=== PATIENT | female | born 1960 | race Caucasian/White ===

== ENCOUNTER 2016-05-04 07:15 | Day surgery (SDC) | payer BC ==
[~2016-05-04] VITALS: Ht 157.5 cm; Wt 84.3 kg
[2016-05-04] MEDS ORDERED: LIDOCAINE 2% (SDV) 5 ML INJ ONE (08:06)
[2016-05-04] MEDS ORDERED: MIDAZOLAM 1 MG/ML 2 ML INJ ONE (08:06)
[2016-05-04] MEDS ORDERED: PROPOFOL 20 ML ONE ×2 (08:06→09:01)
[2016-05-04 08:08] VITALS: Ht 157.5 cm; Wt 84.3 kg
[2016-05-04] MEDS ORDERED: TUMERIC (09:14)
[2016-05-04] MEDS ORDERED: AMOX250C PO (09:14)
[2016-05-04 09:30] VITALS: BP 132/70; PULSE 75; RESP 19
--- NOTE | 2016-05-04 11:58 | GILP ---
DATE OF PROCEDURE: INDICATION: A 56-year-old female undergoing this procedure for abdominal pain, nausea, vomiting, an d colonoscopy for colon cancer screening. The risks of the procedure, related and unrelated complic ations, anesthetic risks, alternatives discussed, informed consent was obtained. DESCRIPTION OF PROCEDURE: The patient was brought to the GI lab, sedated by Dr. Brothers. After optima l sedation, scope was passed with much ease into esophagus which was grossly within normal limits. Z-line was at 35 cm. Stomach mucosa revealed multiple superficial antral ulcers. Duodenal mucosa r evealed duodenitis. Second part was within normal limits, 3 to 4 random biopsies obtained from the stomach to rule out H pylori infection. Retroversion done, no growth was seen. Scope was straighte rayna out and removed with good patient tolerance. IMPRESSION: 1. Multiple gastric ulcers in the antrum. 2. Duodenitis. 3. Normal esophagus. 4. Z-line at 35 cm. PLAN: Start the patient on PPI. Pending H pylori urease test. COLONOSCOPY REPORT: The patient was turned around, scope was passed with much ease into rectum, adv anced through sigmoid, descending, transverse colon all the way into the cecum. Appendiceal orifice and IC valve identified. Peeped into terminal ileum which was normal. The rest of the colon appea red normal. Clarity was good. Cleanliness was good. Colon was tortuous. Hemorrhoids identified. IMPRESSION: 1. Normal findings all the way into the cecum. 2. Clarity and cleanliness was good. 3. Colon was tortuous. 4. Small hemorrhoids identified. PLAN: To stay on a high fiber diet. Dictated By: LARISSA SCHERER/NEPTALI Conf#: [id number] DID#: [id number] CC: Meredith Parker;*EndCC*
== END 2016-05-04 11:15 | disposition home or self-care (01) ==
LOC: GIL 07:15
PROVIDERS: ATTEND Internal Medicine Gastroenterology
DX: Z12.11 Encounter for screening for malignant neoplasm of colon (principal); K25.9 Gastric ulcer, unspecified as acute or chronic, without hemorrhage or perforation; K29.80 Duodenitis without bleeding; K64.9 Unspecified hemorrhoids
CPT/HCPCS: 43239; 45378; 88305; 88312; J2250; Z7610

== ENCOUNTER 2017-10-23 17:53 | Emergency (ER) | END 2017-10-23 19:24 | disposition home or self-care (01) ==

== ENCOUNTER 2017-11-15 20:08 | Emergency (ER) | END 2017-11-15 21:41 | disposition home or self-care (01) ==

== ENCOUNTER 2018-01-18 13:59 | Emergency (ER) | END 2018-01-18 16:12 | disposition home or self-care (01) ==

== ENCOUNTER 2018-03-19 16:07 | Emergency (ER) | payer BC ==
[~2018-03-19] VITALS: Ht 167.6 cm; Wt 88.0 kg
[~2018-03-19 16:07] MED LIST: AMOX250C PO; CEPH-443 PO; HYDR-843 PO; NPH10OT RIGHT EAR; TUMERIC
[2018-03-19 16:12] VITALS: Ht 167.6 cm; Wt 88.0 kg
[2018-03-19] MEDS ORDERED: KETOROLAC 30 MG INJ IV STA (16:33)
[2018-03-19] MEDS ORDERED: ASPI-903 PO (17:00)
[2018-03-19] MEDS ORDERED: IBUP-1542 PO (18:29)
--- NOTE | 2018-03-19 18:31 | ERD ---
ER Documentation Chief Complaint Chief Complaint Complains of Chest pain HPI Patient is a 58-year-old female with sleep apnea who presents with chest pain. The patient has had constant pain in the chest and feels like her left arm is cramping. She has constant fatigue. She describes the pain as "needle pain". She felt shortness of breath and anxious. She is speaking in full sentences however. She said that the symptoms started 1 month ago. Upon review of old medical records this is the patient's fourth visit to the ER since October 2017. She does not know the name of her primary doctor. ROS All systems reviewed and are negative except as per history of present illness. Medications Home Meds Active Scripts Ibuprofen* (Motrin*) 600 Mg Tab, 600 MG PO Q6H PRN for PAIN AND OR ELEVATED TEMP, #30 TAB Prov:GODFREY LANDERS MD 03/19/18 Reported Medications Aspirin* (Aspirin* Chew) 81 Mg Tab.chew, 81 MG PO DAILY, TAB.CHEW 03/19/18 Discontinued Reported Medications [Tumeric] No Conflict Check 05/04/16 Amoxicillin* (Amoxicillin*) 250 Mg Cap, 250 MG PO Q8, #30 CAP 05/04/16 Discontinued Scripts Hydroxyzine Hcl* (Hydroxyzine Hcl*) 25 Mg Tablet, 25 MG PO Q8H PRN for ITCHING, #30 TAB Prov:ROOSEVELT GARCIA NP 11/15/17 Cephalexin* (Keflex*) 500 Mg Capsule, 500 MG PO QID for 10 Days, CAP Prov:ROOSEVELT GARCIA NP 11/15/17 Neomycin/Polymyxin/Hydrocort* (Cortisporin* Otic) 10 Ml Susp, 4 DROP RIGHT EAR QID for 7 Days, EA Prov:IVANA CRABTREE MD 10/23/17 Allergies Allergies: Coded Allergies: shellfish derived (Verified Allergy, Severe, swelling/itching, 11/15/17) latex (Verified Allergy, Intermediate, rash, 11/15/17) Uncoded Allergies: PLASTIC TAPE (Allergy, Intermediate, rash, 11/15/17) SULFA (Allergy, Intermediate, rash, 11/15/17) IV CONTRAST (Allergy, Unknown, swelling/itching, 11/15/17) OPIATES (Allergy, Unknown, swelling, 11/15/17) PMhx/Soc History of Surgery: Yes (partial hysterectomy) Anesthesia Reaction: No Hx Neurological Disorder: No Hx Respiratory Disorders: Yes (sleep apnea) Hx Cardiac Disorders: No Hx Psychiatric Problems: No Hx Miscellaneous Medical Probl: No Hx Alcohol Use: No Hx Substance Use: No Hx Tobacco Use: Yes (quit 13 years ago) FmHx Family History: No coronary disease Physical Exam Vitals Vital Signs Date Temp Pulse Resp B/P (MAP) Pulse Ox O2 O2 Flow FiO2 Time Delivery Rate 03/19/18 88 18 125/62 96 Room Air 18:34 (83) 03/19/18 98.1 86 16 125/67 97 Room Air 18:30 (86) 03/19/18 98.7 103 20 150/69 97 16:12 (96) Physical Exam Const: No acute distress Head: Atraumatic Eyes: Normal Conjunctiva ENT: Normal External Ears, Nose and Mouth. Neck: Full range of motion. No meningismus. Resp: Clear to auscultation bilaterally Cardio: Regular rate and rhythm, no murmurs Abd: Soft, non tender, non distended. Normal bowel sounds Skin: No petechiae or rashes Back: No midline or flank tenderness Ext: No cyanosis, or edema Neur: Awake and alert Psych: Normal Mood and Affect Result Diagram: 03/19/18 1700 03/19/18 1700 Results 24 hrs Laboratory Tests Test 03/19/18 17:00 White Blood Count 10.9 10^3/ul Red Blood Count 4.27 10^6/ul Hemoglobin 13.3 g/dl Hematocrit 38.2 % Mean Corpuscular Volume 89.5 fl Mean Corpuscular Hemoglobin 31.1 pg Mean Corpuscular Hemoglobin Concent 34.8 g/dl Red Cell Distribution Width 12.1 % Platelet Count 414 10^3/UL Mean Platelet Volume 8.9 fl Immature Granulocytes % 0.400 % Neutrophils % 68.2 % Lymphocytes % 26.3 % Monocytes % 4.2 % Eosinophils % 0.6 % Basophils % 0.3 % Nucleated Red Blood Cells % 0.0 /100WBC Immature Granulocytes # 0.040 10^3/ul Neutrophils # 7.4 10^3/ul Lymphocytes # 2.9 10^3/ul Monocytes # 0.5 10^3/ul Eosinophils # 0.1 10^3/ul Basophils # 0.0 10^3/ul Nucleated Red Blood Cells # 0.0 10^3/ul Sodium Level 141 mmol/L Potassium Level 4.2 mmol/L Chloride Level 100 mmol/L Carbon Dioxide Level 29 mmol/L Anion Gap 12 Blood Urea Nitrogen 13 mg/dl Creatinine 0.60 mg/dl Est Glomerular Filtrat Rate mL/min > 60 mL/min Glucose Level 145 mg/dl Calcium Level 9.8 mg/dl Troponin I < 0.012 ng/ml Thyroid Stimulating Hormone (TSH) 1.390 MIU/L Free Thyroxine 0.97 ng/dl Current Medications Medications Dose Sig/Jc Start Time Status Last (Trade) Ordered Route PRN Stop Time Admin Dose Reason Admin Ketorolac 30 mg ONCE STAT 03/19/18 DC 03/19/18 Tromethamine IV 16:33 17:14 (Toradol) 03/19/18 16:34 Procedures/MDM EKG #1 read by me: Rate/Rhythm: Regular rate and rhythm at a rate of 93 Intervals: Normal Impression: No evidence of ischemia or arrhythmia EKG #2 read by me: Rate/Rhythm: Regular rate and rhythm at a rate of 91 Intervals: Normal Impression: No evidence of ischemia or arrhythmia Chest x-ray negative per radiology. Patient is a 58-year-old female who presents with chest pain. Troponin was negative and she said that she has had constant pain for 1 month. 2 EKGs were negative and chest x-ray was negative. At this point I doubt acute coronary syndrome, pneumonia, pneumothorax, pulmonary embolism, or aortic dissection. I believe outpatient management is appropriate but the patient will need close follow-up with her primary doctor within 24-48 hours for reevaluation. The patient understands the plan and is okay for discharge at this time. Departure Diagnosis: Primary Impression: Chest pain Chest pain type: unspecified Qualified Codes: R07.9 - Chest pain, unspecified Condition: Fair Patient Instructions: Chest Pain, Uncertain Cause Referrals: Your doctor Additional Instructions: Call your primary care doctor TOMORROW for an appointment during the next 1-2 days.See the doctor sooner or return here if your condition worsens before your appointment time. GODFREY LANDERS MD Mar 19, 2018 18:31
[2018-03-19 18:34] VITALS: BP 125/62; PULSE 88; RESP 18
== END 2018-03-19 18:52 | disposition home or self-care (01) ==
LOC: E/R 16:07
DX: R07.9 Chest pain, unspecified (principal); Z79.82 Long term (current) use of aspirin; Z87.891 Personal history of nicotine dependence; Z91.040 Latex allergy status
CPT/HCPCS: 36415; 71045; 80048; 84439; 84443; 84484; 85025; 93005; 96374; J1885; Z7502

== ENCOUNTER 2018-07-24 14:25 | Emergency (ER) | payer BC ==
[~2018-07-24] VITALS: Wt 87.6 kg
[~2018-07-24 14:25] MED LIST changes: -AMOX250C PO; +ASPI-903 PO; -CEPH-443 PO; -HYDR-843 PO; +IBUP-1542 PO; -NPH10OT RIGHT EAR; -TUMERIC
[2018-07-24 14:49] VITALS: BP 176/82; PULSE 71; RESP 22
[2018-07-24] MEDS ORDERED: DIPH25CA6 PO (17:11)
[2018-07-24] MEDS ORDERED: CETI10CA PO (17:11)
--- NOTE | 2018-07-24 17:15 | ERD ---
ER Documentation Chief Complaint Chief Complaint R ear pain x1wk, now [place]. denies fever, NVD HPI 58-year-old female presents for right ear pain x1 week. She states that last night she had decreased hearing in the right ear. The pain is noted to be 5 out of 10, stinging sensation. She denies tinnitus or fever. Denies chest pain or shortness of breath. She has had prior similar symptoms which resolved spontaneously. No other modifying factors noted. No treatments tried at home. No history of trauma. ROS All systems reviewed and are negative except as per history of present illness. Medications Home Meds Active Scripts Diphenhydramine Hcl* (Diphenhydramine Hcl*) 25 Mg Capsule, 25 MG PO Q6 PRN for ITCHING, #30 CAP Prov:JOSE G CHIRINOS DO 07/24/18 Cetirizine Hcl* (Zyrtec*) 10 Mg Capsule, 10 MG PO DAILY PRN for allergy, #30 TAB Prov:JOSE G CHIRINOS DO 07/24/18 Ibuprofen* (Motrin*) 600 Mg Tab, 600 MG PO Q6H PRN for PAIN AND OR ELEVATED TEMP, #30 TAB Prov:GODFREY LANDERS MD 03/19/18 Reported Medications Aspirin* (Aspirin* Chew) 81 Mg Tab.chew, 81 MG PO DAILY, TAB.CHEW 03/19/18 Allergies Allergies: Coded Allergies: shellfish derived (Verified Allergy, Severe, swelling/itching, 11/15/17) latex (Verified Allergy, Intermediate, rash, 11/15/17) cortisone (Verified Allergy, Unknown, 07/24/18) Uncoded Allergies: PLASTIC TAPE (Allergy, Intermediate, rash, 11/15/17) SULFA (Allergy, Intermediate, rash, 11/15/17) IV CONTRAST (Allergy, Unknown, swelling/itching, 11/15/17) OPIATES (Allergy, Unknown, swelling, 11/15/17) PMhx/Soc History of Surgery: Yes (partial hysterectomy) Anesthesia Reaction: No Hx Neurological Disorder: No Hx Respiratory Disorders: Yes (sleep apnea) Hx Cardiac Disorders: No Hx Psychiatric Problems: No Hx Miscellaneous Medical Probl: No Hx Alcohol Use: No Hx Substance Use: No Hx Tobacco Use: Yes (quit 13 years ago) Smoking Status: Never smoker FmHx Family History: No coronary disease Physical Exam Vitals Vital Signs Date Temp Pulse Resp B/P (MAP) Pulse Ox O2 O2 Flow FiO2 Time Delivery Rate 07/24/18 97.3 71 22 176/82 97 14:49 (113) Physical Exam Const: No acute distress Head: Atraumatic Eyes: Normal Conjunctiva ENT: Normal External Ears, bilateral tympanic membrane intact without erythema or bulging noted, nose and Mouth examination normal, no tonsillar swelling or exudate noted Neck: Full range of motion. No meningismus. Resp: Clear to auscultation bilaterally, no wheezing, rales, rhonchi Cardio: Regular rate and rhythm, no murmurs Skin: No petechiae or rashes Ext: No cyanosis, or edema Neur: Awake and alert Psych: Normal Mood and Affect Procedures/MDM Medical Decision Making: Differential diagnosis includes but not limited to upper respiratory infection, pneumonia, sepsis, meningitis, influenza, otitis media, otitis externa. Patient appeared well on physical examination, nontoxic appearing. Lungs were clear to auscultation bilaterally. There is low suspicion for pneumonia, sepsis, meningitis. Examination of the right ear not consistent with otitis media or otitis externa. There is no cerumen impaction noted. There is possibility patient may have eustachian tube dysfunction Patient will be given a trial of antihistamine as well as recommendation to follow with audiology and/or ENT. Patient advised to follow up with PCP in 1-2 days. Patient advised to return to ED for new or worsening symptoms. Patient stable on discharge from the ED. Disclaimer: Inadvertent spelling and grammatical errors are likely due to EHR/dictation software use and do not reflect on the overall quality of patient care. Also, please note that the electronic time recorded on this note does not necessarily reflect the actual time of the patient encounter. Departure Diagnosis: Primary Impression: Right ear pain Condition: Fair Patient Instructions: Earache W/O Infection (Adult) Referrals: COMMUNITY CLINICS YOU HAVE RECEIVED A MEDICAL SCREENING EXAM AND THE RESULTS INDICATE THAT YOU DO NOT HAVE A CONDITION THAT REQUIRES URGENT TREATMENT IN THE EMERGENCY DEPARTMENT. FURTHER EVALUATION AND TREATMENT OF YOUR CONDITION CAN WAIT UNTIL YOU ARE SEEN IN YOUR DOCTORS OFFICE WITHIN THE NEXT 1-2 DAYS. IT IS YOUR RESPONSIBILITY TO MAKE AN APPOINTMENT FOR FOLOW-UP CARE. IF YOU HAVE A PRIMARY DOCTOR --you should call your primary doctor and schedule an appointment IF YOU DO NOT HAVE A PRIMARY DOCTOR YOU CAN CALL OUR PHYSICIAN REFERRAL HOTLINE AT IF YOU CAN NOT AFFORD TO SEE A PHYSICIAN YOU CAN CHOSE FROM THE FOLLOWING [facility] [address] [facility] [address] [facility] [address] [facility] [address] [facility] [address] [facility]. [facility]. [address] Additional Instructions: Call your primary care doctor TOMORROW for an appointment during the next 1-2 days.See the doctor sooner or return here if your condition worsens before your appointment time. Recommend follow up with audiology and ENT. JOSE G CHIRINOS DO July 24, 2018 17:15
== END 2018-07-24 17:26 | disposition home or self-care (01) ==
LOC: FTE 14:25
DX: H92.01 Otalgia, right ear (principal); Z79.82 Long term (current) use of aspirin; Z87.891 Personal history of nicotine dependence; Z91.040 Latex allergy status
CPT/HCPCS: 99282

== ENCOUNTER 2018-09-21 14:49 | Emergency (ER) | payer BC ==
[~2018-09-21] VITALS: Wt 80.0 kg
[~2018-09-21 14:49] MED LIST changes: +CETI10CA PO; +DIPH25CA6 PO
[2018-09-21 14:53] VITALS: BP 141/87; PULSE 87; RESP 18
[2018-09-21] MEDS ORDERED: OFLO5DRO7 LEFT EAR (15:13)
[2018-09-21] MEDS ORDERED: SULF1TAB31 PO (15:13)
--- NOTE | 2018-09-21 15:45 | ERD ---
ER Documentation Chief Complaint Chief Complaint left ear pain HPI 58-year-old female presenting with left ear pain. Patient states she had similar pain to her right side a few weeks ago and was treated with Bactrim which alleviated her symptoms she was told she had an external ear infection. Patient has similar pain to the left side today. She denies any fevers. Denies any purulence. Denies any tenderness posterior ear. Denies other medical problems. NKDA. Surgical history denies. Social history denies ROS All systems reviewed and are negative except as per history of present illness. Medications Home Meds Active Scripts Sulfamethoxazole/Trimethoprim* (Bactrim Ds* Tablet) 1 Each Tablet, 1 TAB PO BID, #14 TAB Prov:SERGIO MARI PA-C 09/21/18 Ofloxacin Otic (Ofloxacin Otic) 5 Ml Drops, 5 DROP LEFT EAR DAILY for 7 Days, #1 BOTTLE Prov:SERGIO MARI PA-C 09/21/18 Diphenhydramine Hcl* (Diphenhydramine Hcl*) 25 Mg Capsule, 25 MG PO Q6 PRN for ITCHING, #30 CAP Prov:JOSE G CHIRINOS DO 07/24/18 Cetirizine Hcl* (Zyrtec*) 10 Mg Capsule, 10 MG PO DAILY PRN for allergy, #30 TAB Prov:JOSE G CHIRINOS DO 07/24/18 Ibuprofen* (Motrin*) 600 Mg Tab, 600 MG PO Q6H PRN for PAIN AND OR ELEVATED TEMP, #30 TAB Prov:GODFREY LANDERS MD 03/19/18 Reported Medications Aspirin* (Aspirin* Chew) 81 Mg Tab.chew, 81 MG PO DAILY, TAB.CHEW 03/19/18 Allergies Allergies: Coded Allergies: shellfish derived (Verified Allergy, Severe, swelling/itching, 11/15/17) latex (Verified Allergy, Intermediate, rash, 11/15/17) cortisone (Verified Allergy, Unknown, 07/24/18) Uncoded Allergies: PLASTIC TAPE (Allergy, Intermediate, rash, 11/15/17) SULFA (Allergy, Intermediate, rash, 11/15/17) IV CONTRAST (Allergy, Unknown, swelling/itching, 11/15/17) OPIATES (Allergy, Unknown, swelling, 11/15/17) PMhx/Soc History of Surgery: Yes (partial hysterectomy) Anesthesia Reaction: No Hx Neurological Disorder: No Hx Respiratory Disorders: Yes (sleep apnea) Hx Cardiac Disorders: No Hx Psychiatric Problems: No Hx Miscellaneous Medical Probl: No Hx Alcohol Use: No Hx Substance Use: No Hx Tobacco Use: Yes (quit 13 years ago) Smoking Status: Former smoker FmHx Family History: No diabetes, No coronary disease, No other Physical Exam Vitals Vital Signs Date Temp Pulse Resp B/P (MAP) Pulse Ox O2 O2 Flow FiO2 Time Delivery Rate 09/21/18 98.1 87 18 141/87 99 14:53 (105) Physical Exam GENERAL: The patient is well-appearing, well-nourished, in no acute distress HEENT: Atraumatic. Conjunctivae are pink. Pupils equal, round, and reactive to light. There is no scleral icterus. Tympanic membranes clear bilaterally. Oropharynx clear. Positive tragal tenderness NECK: C-spine is soft and supple. There is no meningismus. There is no cervical lymphadenopathy. CHEST: Clear to auscultation bilaterally. There are no rales, wheezes or rhonchi. HEART: Regular rate and rhythm. No murmurs, clicks, rubs or gallops. Procedures/MDM MDM: 58-year-old female presenting with left ear pain. Patient has findings consistent with otitis externa. Patient refuses to use otic drops and profusely requests Bactrim pills. I explained the patient that the correct treatment is otic drops however will write both for the patient. Patient is recommended to return if symptoms change or worsen. Patient is discharged with strict ER precautions. I have low suspicion for mastoiditis. All questions answered at discharge Departure Diagnosis: Primary Impression: Acute infection of external ear Condition: Stable Patient Instructions: External Ear Infection (Adult) Referrals: COMMUNITY CLINICS YOU HAVE RECEIVED A MEDICAL SCREENING EXAM AND THE RESULTS INDICATE THAT YOU DO NOT HAVE A CONDITION THAT REQUIRES URGENT TREATMENT IN THE EMERGENCY DEPARTMENT. FURTHER EVALUATION AND TREATMENT OF YOUR CONDITION CAN WAIT UNTIL YOU ARE SEEN IN YOUR DOCTORS OFFICE WITHIN THE NEXT 1-2 DAYS. IT IS YOUR RESPONSIBILITY TO MAKE AN APPOINTMENT FOR FOLOW-UP CARE. IF YOU HAVE A PRIMARY DOCTOR --you should call your primary doctor and schedule an appointment IF YOU DO NOT HAVE A PRIMARY DOCTOR YOU CAN CALL OUR PHYSICIAN REFERRAL HOTLINE AT IF YOU CAN NOT AFFORD TO SEE A PHYSICIAN YOU CAN CHOSE FROM THE FOLLOWING [facility] [address] [facility] [address] [facility]. [facility] [address] [facility] [address] [facility] [facility]. [facility] [address] [facility]. [facility] [address] Additional Instructions: FOLLOW UP WITH YOUR PRIMARY CARE PHYSICIAN TOMORROW.Return to this facility if you are not improving as expected. SERGIO MARI PA-C Sep 21, 2018 15:45
== END 2018-09-21 15:44 | disposition home or self-care (01) ==
LOC: FTE 14:49
DX: H60.392 Other infective otitis externa, left ear (principal); Z87.891 Personal history of nicotine dependence
CPT/HCPCS: 99283